=== PATIENT | male | born 1985 | race Caucasian/White ===

== ENCOUNTER 2017-10-09 07:53 | Emergency (ER) | payer OTHER ==
[2017-10-09] MEDS ORDERED: SODIUM CHLORIDE 0.9% 500ML 500 ML IV ONE (08:29)
[2017-10-09 08:42] LABS: CREATININE 1.1 mg/dL (0.5-1.5); POTASSIUM 3.8 mmol/L (3.5-5.1)
[2017-10-09] MEDS ORDERED: KETOROLAC TROMETHAMINE 30MG/ML ONE (09:39)
[2017-10-09 10:24] LABS: APPEARANCE,URINE Clear (CLEAR); BILIRUBIN,URINE Negative (NEGATIVE); COLOR,URINE Yellow (YELLOW); GLUCOSE, URINE (UA) Negative (NEGATIVE); KETONES,URINE Trace mg/dL (NEGATIVE); LEUKOCYTE ESTERASE ,URINE Negative (NEGATIVE); NITRATE,URINE Negative (NEGATIVE); OCCULT BLOOD,URINE Negative (NEGATIVE); PROTEIN,URINE Negative (NEGATIVE)
[2017-10-09 10:30] LABS: BACTERIA,URINE None Seen /HPF (None Seen); MUCUS,URINE Few LPF (None Seen); RBC,URINE None Seen /HPF (0-1); SQUAMOUS EPITHELIAL CELL,UR Rare /HPF (0-2); WBC,URINE None Seen /HPF (0-1)
[2017-10-09] MEDS ORDERED: METHYLPREDNISOLONE SOD SUCC 125MG/2ML VIAL ONE (10:36)
[2017-10-09] MEDS ORDERED: MORPHINE SULFATE 4 MG/1ML SYG ONE (11:18)
[2017-10-09] MEDS ORDERED: ONDANSETRON HCL MDV 20ML 2 MG/ML VIAL ONE (11:18)
== END 2017-10-09 11:36 | disposition home or self-care (01) ==
LOC: EDH 07:53
DX: M54.5 Low back pain (principal); Z98.890 Other specified postprocedural states; Z87.442 Personal history of urinary calculi; Z79.899 Other long term (current) drug therapy
CPT/HCPCS: 36415; 74176; 80048; 81001; 96374; 96375; 99285; J1885; J2270; J2930; J7040